=== PATIENT | male | born 1990 | race American Indian/Alaskan Native ===

== ENCOUNTER 2017-03-11 21:29 | Emergency (ER) | payer SELFPAY ==
[2017-03-11 22:15] LABS: Urine Drugs of Abuse Note Disclamer
[2017-03-11 22:19] LABS: Basophils % (Auto) 0.5 % (0.0-1.8); Eosinophils % (Auto) 0.1 % (0.0-4.3); Hematocrit 41.1 % (35.5-45.6); Hemoglobin 14.1 gm/dl (11.8-15.2); Mean Corpuscular HGB Conc 34 % (32-34); Mean Corpuscular Hemoglobin 30 pg (28-32); Mean Corpuscular Volume 89 fl (84-94); Platelet Count 263 K/mm3 (140-440); Red Blood Count 4.64 M/mm3 (3.65-5.03); Red Cell Distribution Width 14.1 % (13.2-15.2); White Blood Count 11.4 K/mm3 (4.5-11.0)
[2017-03-11 22:31] LABS: Anion Gap 22 mmol/L; Blood Urea Nitrogen 11 mg/dL (9-20); Calcium 9.9 mg/dL (8.4-10.2); Carbon Dioxide 24 mmol/L (22-30); Glucose 107 mg/dL (75-100); Potassium 4.4 mmol/L (3.6-5.0); Sodium 136 mmol/L (137-145)
[2017-03-11] MEDS ORDERED: ATIVAN PO ONE (22:31)
--- NOTE | 2017-03-11 22:32 | Emergency Department Report ---
ED Psych HPI - General Chief Complaint: Psych Stated Complaint: PARANOID Time Seen by Provider: 03/11/17 22:20 Source: patient Mode of arrival: Ambulatory Limitations: No Limitations - History of Present Illness Initial Comments: 26-year-old male with a past medical history of hypertension, ADHD, bipolar, and possible schizophrenia presents to the hospital. No weight loss. He feels like someone is out to get him and assisted him. He denies hallucinations, suicidal, homicidal ideation. He's been noncompliant with Zyprexa for several months. He was just released from nursing home 7 days ago and used meth/mesha 7 days ago after he was released. He states he did not receive any psychiatric medication while in nursing home No physical complaints reported - Related Data Home Medications Medication Instructions Recorded Confirmed Last Taken OLANzapine [Zyprexa] 10 mg PO DAILY 11/26/15 03/12/[address] [Pedrito Luong] 500 mg PO BID 03/18/16 03/12/17 2 Months Ago Allergies Allergy/AdvReac Type Severity Reaction Status Date / Time No Known Allergies Allergy Verified 03/18/16 15:44 ED Review of Systems ROS: Stated complaint: PARANOID Other details as noted in HPI Comment: All other systems reviewed and negative Other: Constitutional: No fevers chills Eyes: No eye pain visual changes ENT: No ear pain or throat pain Neck: Denies pain Respiratory: Denies cough wheezing shortness of breath Cardiovascular: Denies chest pain, palpitations, syncope GI: Denies abdominal pain, nausea, vomiting, diarrhea : Denies dysuria Musculoskeletal: Denies back pain, joint swelling Skin: Denies rash, lesions, erythema Neurologic: Denies headache, numbness, weakness Psychiatric: As per HPI ED Past Medical Hx - Past Medical History Previous Medical History?: Yes Hx Hypertension: Yes Hx Congestive Heart Failure: No Hx Diabetes: No Hx Psychiatric Treatment: Yes (ADHD, bipolar possibly schizophrenic) Hx Asthma: No Hx COPD: No - Surgical History Past Surgical History?: No - Social History Smoking Status: Current Every Day Smoker Substance Use Type: Alcohol, Methamphetamines - Medications Home Medications: Home Medications Medication Instructions Recorded Confirmed Last Taken Type OLANzapine [Zyprexa] 10 mg PO DAILY 11/26/15 03/12/17 2 Months Ago History D[address] [Pedrito Luong] 500 mg PO BID 03/18/16 03/12/17 2 Months Ago History ED Physical Exam - General Limitations: No Limitations - Other Other exam information: General: No limitations, patient is alert in no acute distress Head exam: Atraumatic, normocephalic Eyes exam: Normal appearance ENT: Moist mucous membrane, normal oropharynx Neck exam: Normal inspection, full range of motion, no meningismus nontender Respiratory exam: Clear to auscultation bilateral, no wheezes, rales, crackles Cardiovascular: Mild tachycardia regular rhythm Abdomen: Soft, nondistended, and nontender, with normal bowel sounds, no rebound, or guarding Extremity: Full range of motion normal inspection no deformity Back: Normal Inspection, full range of motion, no tenderness Neurologic: Alert, oriented x3, cranial nerves intact, no motor or sensory deficit Psychiatric: Paranoid Skin: Warm, dry, intact ED Course Vital Signs 03/11/17 03/12/17 21:46 02:43 Temperature 98.7 F 97.8 F Pulse Rate 120 H 97 H Respiratory 24 18 Rate Blood Pressure 162/96 Blood Pressure 142/86 [Left] O2 Sat by Pulse 95 100 Oximetry - Reevaluation(s) Reevaluation #1: 03/11/17 22:31 Ativan 1 mg by mouth for tachycardia and paranoia 03/12/17 Patient began to become combative with increased agitation prior to receiving Ativan. Patient required Geodon IM, Ativan IM, and Benadryl. Reevaluation #2: 03/12/17 06:30 Repeat vital signs show improvement in tachycardia with sedation and IV fluids ED Medical Decision Making - Lab Data Result diagrams: 03/11/17 21:56 03/11/17 21:56 Lab Results 03/11/17 03/11/17 03/11/17 Range/Units 21:56 21:56 21:56 WBC 11.4 H (4.5-11.0) K/mm3 RBC 4.64 (3.65-5.03) M/mm3 Hgb 14.1 (11.8-15.2) gm/dl Hct 41.1 (35.5-45.6) % MCV 89 (84-94) fl MCH 30 (28-32) pg MCHC 34 (32-34) % RDW 14.1 (13.2-15.2) % Plt Count 263 (140-440) K/mm3 Lymph % (Auto) 7.5 L (13.4-35.0) % [place] % (Auto) 7.2 (0.0-7.3) % Eos % (Auto) 0.1 (0.0-4.3) % Baso % (Auto) 0.5 (0.0-1.8) % Lymph # 0.9 L (1.2-5.4) K/mm3 [place] # 0.8 (0.0-0.8) K/mm3 Eos # 0.0 (0.0-0.4) K/mm3 Baso # 0.1 (0.0-0.1) K/mm3 Seg Neutrophils % 84.7 H (40.0-70.0) % Seg Neutrophils # 9.6 H (1.8-7.7) K/mm3 Sodium 136 L (137-145) mmol/L Potassium 4.4 (3.6-5.0) mmol/L Chloride 94.0 L (98-107) mmol/L Carbon Dioxide 24 (22-30) mmol/L Anion Gap 22 mmol/L BUN 11 (9-20) mg/dL Creatinine 1.1 (0.8-1.5) mg/dL Estimated GFR > 60 ml/min BUN/Creatinine Ratio 10.00 % Glucose 107 H (75-100) mg/dL Calcium 9.9 (8.4-10.2) mg/dL Total Creatine Kinase (55-170) units/L Urine Color (Yellow) Urine Turbidity (Clear) Urine pH (5.0-7.0) Ur Specific [place] (1.003-1.030) Urine Protein (Negative) mg/dL Urine Glucose (UA) (Negative) mg/dL Urine Ketones (Negative) mg/dL Urine Blood (Negative) Urine Nitrite (Negative) Urine Bilirubin (Negative) Urine Urobilinogen (<2.0) mg/dL Ur Leukocyte Esterase (Negative) Urine WBC (Auto) (0.0-6.0) /HPF Urine RBC (Auto) (0.0-6.0) /HPF Urine Mucus /HPF Urine Opiates Screen Urine Methadone Screen Ur Barbiturates Screen Ur Phencyclidine Scrn Ur Amphetamines Screen U Benzodiazepines Scrn Urine Cocaine Screen U Marijuana (THC) Screen Drugs of Abuse Note Plasma/Serum Alcohol < 0.01 (0-0.07) gm% 03/11/17 03/11/17 03/11/17 Range/Units 21:56 22:11 22:11 WBC (4.5-11.0) K/mm3 RBC (3.65-5.03) M/mm3 Hgb (11.8-15.2) gm/dl Hct (35.5-45.6) % MCV (84-94) fl MCH (28-32) pg MCHC (32-34) % RDW (13.2-15.2) % Plt Count (140-440) K/mm3 Lymph % (Auto) (13.4-35.0) % [place] % (Auto) (0.0-7.3) % Eos % (Auto) (0.0-4.3) % Baso % (Auto) (0.0-1.8) % Lymph # (1.2-5.4) K/mm3 [place] # (0.0-0.8) K/mm3 Eos # (0.0-0.4) K/mm3 Baso # (0.0-0.1) K/mm3 Seg Neutrophils % (40.0-70.0) % Seg Neutrophils # (1.8-7.7) K/mm3 Sodium (137-145) mmol/L Potassium (3.6-5.0) mmol/L Chloride (98-107) mmol/L Carbon Dioxide (22-30) mmol/L Anion Gap mmol/L BUN (9-20) mg/dL Creatinine (0.8-1.5) mg/dL Estimated GFR ml/min BUN/Creatinine Ratio % Glucose (75-100) mg/dL Calcium (8.4-10.2) mg/dL Total Creatine Kinase 1704 H (55-170) units/L Urine Color Yellow (Yellow) Urine Turbidity Clear (Clear) Urine pH 6.0 (5.0-7.0) Ur Specific [place] 1.018 (1.003-1.030) Urine Protein <15 mg/dl (Negative) mg/dL Urine Glucose (UA) Neg (Negative) mg/dL Urine Ketones Tr (Negative) mg/dL Urine Blood Neg (Negative) Urine Nitrite Neg (Negative) Urine Bilirubin Neg (Negative) Urine Urobilinogen < 2.0 (<2.0) mg/dL Ur Leukocyte Esterase Neg (Negative) Urine WBC (Auto) 1.0 (0.0-6.0) /HPF Urine RBC (Auto) 2.0 (0.0-6.0) /HPF Urine Mucus Few /HPF Urine Opiates Screen Presumptive negative Urine Methadone Screen Presumptive negative Ur Barbiturates Screen Presumptive negative Ur Phencyclidine Scrn Presumptive negative Ur Amphetamines Screen Presumptive positive U Benzodiazepines Scrn Presumptive negative Urine Cocaine Screen Presumptive positive U Marijuana (THC) Screen Presumptive positive Drugs of Abuse Note Disclamer Plasma/Serum Alcohol (0-0.07) gm% 03/12/17 Range/Units 02:33 WBC (4.5-11.0) K/mm3 RBC (3.65-5.03) M/mm3 Hgb (11.8-15.2) gm/dl Hct (35.5-45.6) % MCV (84-94) fl MCH (28-32) pg MCHC (32-34) % RDW (13.2-15.2) % Plt Count (140-440) K/mm3 Lymph % (Auto) (13.4-35.0) % [place] % (Auto) (0.0-7.3) % Eos % (Auto) (0.0-4.3) % Baso % (Auto) (0.0-1.8) % Lymph # (1.2-5.4) K/mm3 [place] # (0.0-0.8) K/mm3 Eos # (0.0-0.4) K/mm3 Baso # (0.0-0.1) K/mm3 Seg Neutrophils % (40.0-70.0) % Seg Neutrophils # (1.8-7.7) K/mm3 Sodium (137-145) mmol/L Potassium (3.6-5.0) mmol/L Chloride (98-107) mmol/L Carbon Dioxide (22-30) mmol/L Anion Gap mmol/L BUN (9-20) mg/dL Creatinine (0.8-1.5) mg/dL Estimated GFR ml/min BUN/Creatinine Ratio % Glucose (75-100) mg/dL Calcium (8.4-10.2) mg/dL Total Creatine Kinase 1819 H (55-170) units/L Urine Color (Yellow) Urine Turbidity (Clear) Urine pH (5.0-7.0) Ur Specific [place] (1.003-1.030) Urine Protein (Negative) mg/dL Urine Glucose (UA) (Negative) mg/dL Urine Ketones (Negative) mg/dL Urine Blood (Negative) Urine Nitrite (Negative) Urine Bilirubin (Negative) Urine Urobilinogen (<2.0) mg/dL Ur Leukocyte Esterase (Negative) Urine WBC (Auto) (0.0-6.0) /HPF Urine RBC (Auto) (0.0-6.0) /HPF Urine Mucus /HPF Urine Opiates Screen Urine Methadone Screen Ur Barbiturates Screen Ur Phencyclidine Scrn Ur Amphetamines Screen U Benzodiazepines Scrn Urine Cocaine Screen U Marijuana (THC) Screen Drugs of Abuse Note Plasma/Serum Alcohol (0-0.07) gm% - Medical Decision Making 1013 signed, mental health evaluation pending After 2 L of normal saline patient's CK stranding upper. As of 6:29 AM. Fourth liter normal saline progress. Patient signout to Dr. Price to follow up CK is trending up. Patient may need admission to the hospital. I suspect that acute. Her behavior may be secondary to acute drug ingestion versus underlying psychiatric disorder. He has positive cocaine and amphetamines as well as marijuana. - Differential Diagnosis methamphetamine abuse, paranoia, suicide ideation, psychosis Critical Care Time: No Critical care attestation.: If time is entered above; I have spent that time in minutes in the direct care of this critically ill patient, excluding procedure time. ED Disposition Clinical Impression: Schizophrenia, Elevated CK, Polysubstance abuse, Noncompliance with medication regimen Disposition: DC/TX-65 PSY HOSP/PSY UNIT Is pt being admited?: No Condition: Stable Time of Disposition: 06:30 (awaiting acceptance)
[2017-03-11 22:41] LABS: Bilirubin,Urine NEG (Negative); Blood,Urine NEG (Negative); Ketones,Urine TR mg/dL (Negative); Leukocyte Esterase,Urine NEG (Negative); Mucus,Urine FEW /HPF; Nitrite,Urine NEG (Negative); Protein,Urine <15 mg/dL mg/dL (Negative); Urobilinogen,Urine < 2.0 mg/dL (<2.0)
[2017-03-11] MEDS ORDERED: GEODON IM ONE (22:48)
[2017-03-11] MEDS ORDERED: NACL 0.9% 1000 ML 1,000 ML IV ONE ×2 (22:48)
[2017-03-11] MEDS ORDERED: BENADRYL IM ONE (22:48)
[2017-03-11] MEDS ORDERED: ATIVAN IM ONE (22:48)
[2017-03-12] MEDS ORDERED: NACL 0.9% 1000 ML 1,000 ML IV ONE ×4 (01:45→13:27)
[2017-03-12] MEDS ORDERED: ATIVAN IM ONE (10:42)
[2017-03-12] MEDS ORDERED: HALDOL IM ONE (10:42)
--- NOTE | 2017-03-12 13:36 | Consultation ---
History of Present Illness - Reason for Consult Consult date: 03/12/17 Reason for consult: psychiatric evaluation - Chief Complaint Chief complaint: "I want out of here." - History of Present Psychiatric Illness 26 year old male seen for psychiatric evaluation presents complaining of paranoid ideation and methamphetamine use. Pt has history of Schizophrenia with multiple prior inpatient hospitalizations. He admits noncompliance with prescribed medications including Zyprexa, depakote (for seizures), and Seroquel past few months. Pt is paranoid and believes that someone is chasing him with intent to take his life. He reports recent use of Amphetamines and cocaine, but admits daily use of any combination of multiple drugs including cocaine, mesha, amphetamines, marijuana, and Xanax. Pt presents alert and oriented x3, cooperative, anxious with congruent affect, impaired insight and judgment. He denies suicidal or homicidal ideation, auditory or visual hallucinations but continues to endorse paranoid delusions. He repeatedly states he needs to leave and did not ask to be there. He was uncooperative with further interviewing. Medications and Allergies Allergies Allergy/AdvReac Type Severity Reaction Status Date / Time No Known Allergies Allergy Verified 03/18/16 15:44 Home Medications Medication Instructions Recorded Confirmed Last Taken Type OLANzapine [Zyprexa] 10 mg PO DAILY 11/26/15 03/12/17 2 Months Ago History D[address] [Depakote Dr] 500 mg PO BID 03/18/16 03/12/17 2 Months Ago History Divalproex ER [Depakote ER] 500 mg PO BID #60 tablet 03/15/17 Unknown Rx Active Meds: Active Medications Sodium Chloride (Nacl 0.9% 1000 Ml) 1,000 mls @ 999 mls/hr IV BOLUS ONE Stop: 03/12/17 14:27 Past psychiatric history - Past Medical History Past Medical History: seizures - past Psychiatric treatment and history Psych: Addictions, Schizophrenia Mental Status Exam - Vital signs Last Vital Signs Temp 97.8 F 03/12/17 02:43 Pulse 97 H 03/12/17 02:43 Resp 18 03/12/17 02:43 BP 142/86 03/12/17 02:43 Pulse Ox 100 03/12/17 02:43 - Exam Orientation: time, place, person Affect: agitated Mood: other (agitated) Thought content: paranoia Thought Process: Tangential Perceptions: other (denies) Speech: other (loud) Concentration: distractible Motor activity: agitated Level of consciousness: alert Memory: Intact Sleep Symptoms: Insomnia Appetite: decreased Interaction: irritable, guarded Results Result Diagrams: 03/11/17 21:56 03/11/17 21:56 Abnormal lab results 03/11/17 03/11/17 03/11/17 Range/Units 21:56 21:56 21:56 WBC 11.4 H (4.5-11.0) K/mm3 Lymph % (Auto) 7.5 L (13.4-35.0) % Lymph # 0.9 L (1.2-5.4) K/mm3 Seg Neutrophils % 84.7 H (40.0-70.0) % Seg Neutrophils # 9.6 H (1.8-7.7) K/mm3 Sodium 136 L (137-145) mmol/L Chloride 94.0 L (98-107) mmol/L Glucose 107 H (75-100) mg/dL Total Creatine Kinase 1704 H (55-170) units/L 03/12/17 03/12/17 Range/Units 02:33 09:41 WBC (4.5-11.0) K/mm3 Lymph % (Auto) (13.4-35.0) % Lymph # (1.2-5.4) K/mm3 Seg Neutrophils % (40.0-70.0) % Seg Neutrophils # (1.8-7.7) K/mm3 Sodium (137-145) mmol/L Chloride (98-107) mmol/L Glucose (75-100) mg/dL Total Creatine Kinase 1819 H 3200 H (55-170) units/L All other labs normal. Assessment and Plan Assessment and plan: Impression: historical diagnosis of schizophrenia polysubstance use (stimulant use d/o, sedative hypnotic use, CK is 3600 Recommendation: Hold antipsychotic at this time to avoid further elevation of CK/rhabdo start depakote for agitation/mood
[2017-03-12] MEDS ORDERED: HALDOL ONE (15:20)
[2017-03-12] MEDS ORDERED: ATIVAN ONE (15:20)
--- NOTE | 2017-03-14 14:44 | Progress Note ---
Subjective - Reason for Consult Consult date: 03/14/17 Reason for consult: Psychiatry Follow-up - Chief Complaint Chief complaint: "I want to go home" 26 year old male seen for psychiatric evaluation presents complaining of paranoid ideation and methamphetamine use. Today patient is calm and cooperative during assessment. He stated that he was in [facility] and once released, he wanted to "Turn up" so he decided to get "high" on recreational drugs. He stated that he felt "paranoid" when he started using the drugs. He stated that he cannot remember what happened when he came to [facility]. He stated that he would like to stop using recreational drugs so he can get his life together. Patient was in the secured padded room during the assessment. He denies SI/HI's, AVH's, and depression. Mental Status Exam - Vital signs Last Vital Signs Temp 98.1 F 03/14/17 14:17 Pulse 74 03/14/17 14:17 Resp 20 03/14/17 14:18 BP 102/65 03/14/17 14:17 Pulse Ox 100 03/14/17 14:18 - Exam Narrative exam: MSE: Appearance: calm, cooperative Behavior: regular eye contact Speech: regular rate and tone Mood: "okay" Affect: congruent to mood Thought Process: circumstantial Thought Content: denies SI/HI's with AVH's Motor Activity: ambulatory Cognition: A/Ox 3 Insight: fair Judgment: fair Assessment and Plan Impression: Historical DX per patient: Bipolar DO. Substance Use DO ( amphetamines, cocaine, marijuana) Substance Induced Psychosis. CK 1003, trending down. Recommendation/Plan: Evaluate 1013 in 24 hours. Will start Depakote 500 mg BID for mood once LFT's result.
[2017-03-14 16:54] LABS: Alanine Aminotransferase 41 units/L (7-56); Alkaline Phosphatase 54 units/L (35-129)
--- NOTE | 2017-03-15 13:18 | Progress Note ---
Subjective - Reason for Consult Consult date: 03/15/17 Reason for consult: Psychiatry Follow-up - Chief Complaint Chief complaint: "Hello" 26 year old male seen for psychiatric evaluation presents complaining of paranoid ideation and methamphetamine use. Today patient is calm and cooperative during assessment. He stated that he would like to be discharged. He stated that he will follow-up with [facility] for outpatient psy/rehab services. He denies SI/HI's, AVH's, and depression. He denies any side effects of his medication. Mental Status Exam - Vital signs Last Vital Signs Temp 98 F 03/14/17 20:47 Pulse 71 03/14/17 20:47 Resp 18 03/14/17 20:47 BP 105/66 03/14/17 20:47 Pulse Ox 98 03/14/17 20:47 - Exam Narrative exam: MSE: Appearance: calm, cooperative Behavior: regular eye contact Speech: regular rate and tone Mood: "I am good" Affect: congruent to mood Thought Process: linear Thought Content: denies SI/HI's with AVH's Motor Activity: ambulatory Cognition: A/Ox 3 Insight: fair Judgment: fair Assessment and Plan Impression: Historical DX per patient: Bipolar DO. Substance Use DO ( amphetamines, cocaine, marijuana) Substance Induced Psychosis. CK 1003, trending down. Recommendation/Plan: Rescind 1013. Continue Depakote 500 mg BID for mood. Patient stated that he will follow-up with [facility] ([facility] for outpatient/rehab services.
[2017-03-15 17:07] VITALS: BP 109/66
--- NOTE | 2017-03-15 19:01 | Emergency Department Report ---
HPI - General Chief Complaint: Psych Time Seen by Provider: 03/11/17 22:20 ED Past Medical Hx - Past Medical History Previous Medical History?: Yes Hx Hypertension: Yes Hx Congestive Heart Failure: No Hx Diabetes: No Hx Psychiatric Treatment: Yes (ADHD, bipolar possibly schizophrenic) Hx Asthma: No Hx COPD: No - Surgical History Past Surgical History?: No - Social History Smoking Status: Current Every Day Smoker Substance Use Type: Alcohol, Methamphetamines - Medications Home Medications: Home Medications Medication Instructions Recorded Confirmed Last Taken Type OLANzapine [Zyprexa] 10 mg PO DAILY 11/26/15 03/12/17 2 Months Ago History D[address] [Depakote Dr] 500 mg PO BID 03/18/16 03/12/17 2 Months Ago History Divalproex ER [Depakote ER] 500 mg PO BID #60 tablet 03/15/17 Unknown Rx ED Review of Systems ROS: Stated complaint: PARANOID Other details as noted in HPI Physical Exam - Physical Exam Vital Signs: Vital Signs 03/11/17 03/12/17 03/12/17 21:46 02:43 14:16 Temperature 98.7 F 97.8 F 98.2 F Pulse Rate 120 H 97 H 90 Respiratory 24 18 18 Rate Blood Pressure 162/96 Blood Pressure 142/86 138/78 [Left] O2 Sat by Pulse 95 100 97 Oximetry 03/12/17 03/13/17 03/13/17 14:17 08:05 08:43 Temperature 97.9 F Pulse Rate 84 Respiratory 18 16 16 Rate Blood Pressure Blood Pressure 127/71 [Left] O2 Sat by Pulse 99 99 Oximetry 03/13/17 03/14/17 03/14/17 22:00 14:17 14:18 Temperature 98.1 F 98.1 F Pulse Rate 76 74 Respiratory 18 20 20 Rate Blood Pressure Blood Pressure 108/54 102/65 [Left] O2 Sat by Pulse 100 100 100 Oximetry 03/14/17 03/15/17 03/15/17 20:47 08:20 17:07 Temperature 98 F 97.9 F Pulse Rate 71 78 Respiratory 18 20 20 Rate Blood Pressure Blood Pressure 105/66 109/66 [Left] O2 Sat by Pulse 98 96 100 Oximetry ED Course Vital Signs 03/11/17 03/12/17 03/12/17 21:46 02:43 14:16 Temperature 98.7 F 97.8 F 98.2 F Pulse Rate 120 H 97 H 90 Respiratory 24 18 18 Rate Blood Pressure 162/96 Blood Pressure 142/86 138/78 [Left] O2 Sat by Pulse 95 100 97 Oximetry 03/12/17 03/13/17 03/13/17 14:17 08:05 08:43 Temperature 97.9 F Pulse Rate 84 Respiratory 18 16 16 Rate Blood Pressure Blood Pressure 127/71 [Left] O2 Sat by Pulse 99 99 Oximetry 03/13/17 03/14/17 03/14/17 22:00 14:17 14:18 Temperature 98.1 F 98.1 F Pulse Rate 76 74 Respiratory 18 20 20 Rate Blood Pressure Blood Pressure 108/54 102/65 [Left] O2 Sat by Pulse 100 100 100 Oximetry 03/14/17 03/15/17 03/15/17 20:47 08:20 17:07 Temperature 98 F 97.9 F Pulse Rate 71 78 Respiratory 18 20 20 Rate Blood Pressure Blood Pressure 105/66 109/66 [Left] O2 Sat by Pulse 98 96 100 Oximetry ED Medical Decision Making - Lab Data Result diagrams: 03/11/17 21:56 03/11/17 21:56 - Medical Decision Making Patient with psychosis likely related to substance abuse here for several days. Was sent to 1013 in conjunction with [facility] recommendation. Continue the patient 's Depakote 500 twice a day and he will follow-up with [place] [facility]. Critical care attestation.: If time is entered above; I have spent that time in minutes in the direct care of this critically ill patient, excluding procedure time. ED Disposition Clinical Impression: Substance abuse, Rhabdomyolysis, Polysubstance abuse, Schizophrenia Disposition: DC/TX-65 PSY HOSP/PSY UNIT Is pt being admited?: No Condition: Stable Instructions: Methamphetamine Abuse (ED), Schizophrenia (ED) Prescriptions: Divalproex ER [Depakote ER] 500 mg PO BID #60 tablet Referrals: PRIMARY CARE, [Primary Care Provider] - 3-5 Days
== END 2017-03-15 19:16 | disposition home or self-care (01) ==
LOC: ED 21:29 → EEVIPCON 21:29 → ED 03-15 19:16
DX: F20.9 Schizophrenia, unspecified (principal); M62.82 Rhabdomyolysis; F19.10 Other psychoactive substance abuse, uncomplicated; I10 Essential (primary) hypertension; F17.200 Nicotine dependence, unspecified, uncomplicated
CPT/HCPCS: 36415; 80048; 80307; 81001; 82550; 84075; 84450; 84460; 85025; 96360; 96361; 96372; 99285; G0480; J1200; J1630; J2060; J3486; J7030; 80320

== ENCOUNTER 2021-06-14 05:11 | Emergency (ER) | payer SELFPAY ==
[2021-06-14 05:20] VITALS: BP 115/84
[2021-06-14] MEDS ORDERED: ACETAMINOPHEN 325 MG TAB PO ONE (05:46)
--- NOTE | 2021-06-14 06:18 | Emergency Department Report ---
ED General Adult HPI - General Chief complaint: Extremity Injury, Lower Stated complaint: FOOT PAIN/COUGH Time Seen by Provider: 06/14/21 05:45 Source: patient, EMS, old records reviewed Mode of arrival: Ambulatory Limitations: No Limitations - History of Present Illness Initial comments: The patient was evaluated in the emergency department for symptoms described in the history of present illness. He/she was evaluated in the context of the global COVID-19 pandemic, which necessitated consideration that the patient might be at risk for infection with the virus that causes COVID-19. Institutional protocols and algorithms that pertain to the evaluation of patients at risk for COVID-19 are in a state of rapid change based on information released by regulatory bodies including the CDC and federal and state organizations. These policies and algorithms were followed during the patient's care in the emergency department. Please note that these policies, procedures and recommendations changed on a rapid basis. 30-year-old -[place] male presents to the emergency room concern for Covid and complains of both feet hurt. Patient was seen here yesterday for sore throat and was placed on Augmentin. Patient states he is recently out of group home. Patient has contagious sleep in the room for a while. Patient denies any fever but admits to a cough. Onset/Timin -: days(s) Location: lower extremity (Bilateral feet) Severity scale (0 -10): 8 Quality: burning, aching Consistency: constant Improves with: rest Worsens with: movement (Walking) Associated Symptoms: cough. denies: fever/chills, nausea/vomiting, shortness of breath - Related Data Home Medications Medication Instructions Recorded Confirmed Last Taken OLANzapine [Zyprexa] 10 mg PO DAILY 11/26/15 03/12/17 2 Months Ago ~04/08/[address] [Pedrito Luong] 500 mg PO BID 03/18/16 03/12/17 2 Months Ago ~04/08/16 Previous Rx's Medication Instructions Recorded Last Taken Type Azithromycin [Zithromax TAB] 250 mg PO QDAY #4 tablet 09/26/18 Unknown Rx Amoxicillin [Trimox CAP] 500 mg PO Q8H #30 capsule 06/13/21 Unknown Rx Mometasone Furoate [Nasonex] 17 gm NS DAILY #1 spray.pump 06/13/21 Unknown Rx Allergies Allergy/AdvReac Type Severity Reaction Status Date / Time No Known Allergies Allergy Verified 06/14/21 05:24 ED Review of Systems ROS: Stated complaint: FOOT PAIN/COUGH Other details as noted in HPI Comment: All other systems reviewed and negative ED Past Medical Hx - Past Medical History Previous Medical History?: Yes Hx Hypertension: Yes Hx Congestive Heart Failure: No Hx Diabetes: No Hx Seizures: Yes Hx Psychiatric Treatment: Yes (ADHD, bipolar possibly schizophrenic) Hx Asthma: No Hx COPD: No Hx HIV: No - Surgical History Past Surgical History?: No - Social History Smoking Status: Current Every Day Smoker Substance Use Type: None - Medications Home Medications: Home Medications Medication Instructions Recorded Confirmed Last Taken Type OLANzapine [Zyprexa] 10 mg PO DAILY 11/26/15 03/12/17 2 Months Ago History ~04/08/[address] [Depakote Dr] 500 mg PO BID 03/18/16 03/12/17 2 Months Ago History ~04/08/16 Azithromycin [Zithromax TAB] 250 mg PO QDAY #4 tablet 09/26/18 Unknown Rx Amoxicillin [Trimox CAP] 500 mg PO Q8H #30 capsule 06/13/21 Unknown Rx Mometasone Furoate [Nasonex] 17 gm NS DAILY #1 spray.pump 06/13/21 Unknown Rx ED Physical Exam - General Limitations: No Limitations General appearance: alert, in no apparent distress - Head Head exam: Present: atraumatic, normocephalic - Eye Eye exam: Present: normal appearance - ENT ENT exam: Present: mucous membranes moist - Neck Neck exam: Present: normal inspection, full ROM - Respiratory Respiratory exam: Absent: respiratory distress, accessory muscle use - Cardiovascular Cardiovascular Exam: Present: tachycardia - Extremities Exam Extremities exam: Present: full ROM (Both feet), tenderness (Both feet), joint swelling (Both ankles) - Back Exam Back exam: Present: normal inspection - Neurological Exam Neurological exam: Present: alert, oriented X3 - Psychiatric Psychiatric exam: Present: flat affect - Skin Skin exam: Present: warm, dry, erythema (Bilateral feet) - Expanded Skin Exam Expanded Description of rash: Present: tenderness, erythematous, swelling ED Course Vital Signs 06/14/21 05:15 Temperature 99.6 F Pulse Rate 120 H Respiratory 18 Rate Blood Pressure 115/84 [Left] O2 Sat by Pulse 96 Oximetry ED Medical Decision Making - Medical Decision Making 30-year-old -[place] male presents to the emergency room concern for Covid and complains of both feet hurt. Patient was seen here yesterday for sore throat and was placed on Augmentin. Patient states he is recently out of group home. Patient has contagious sleep in the room for a while. Patient denies any fever but admits to a cough. Chest x-ray ordered. Patient appears to have cellulitis to both feet he was written a prescription for Augmentin which will cover cellulitis of his feet. Critical care attestation.: If time is entered above; I have spent that time in minutes in the direct care of this critically ill patient, excluding procedure time. ED Disposition Clinical Impression: Cellulitis of both feet Disposition: 01 HOME / SELF CARE / HOMELESS Is pt being admited?: No Does the pt Need Aspirin: No Condition: Stable Instructions: Cellulitis, Adult, [id number] Additional Instructions: Please fill your prescription for Augmentin that was given to you yesterday. Tylenol or ibuprofen as needed for pain. Be sure to increase your fluid intake. Elevate your feet and rest. Referrals: PRIMARY CAREMD [Primary Care Provider] - 3-5 Days DAVON SCHNEIDER MD [Staff Physician] - 3-5 Days Time of Disposition: 06:27
--- NOTE | 2021-06-14 06:42 | XRay Report ---
XR chest routine 2V INDICATION / CLINICAL INFORMATION: sob, cough. COMPARISON: 09/24/2018. FINDINGS: SUPPORT DEVICES: None. HEART /PULMONARY VASCULATURE: No significant abnormality. LUNGS / PLEURA: No significant pulmonary or pleural abnormality. No pneumothorax. ADDITIONAL FINDINGS: No significant additional findings. IMPRESSION: 1. No acute findings. Signer Name: Sudhakar Cruz MD Signed: 06/14/2021 6:38 AM Workstation Name: [id number]
== END 2021-06-15 04:33 | disposition home or self-care (01) ==
LOC: ED 05:11
DX: L03.116 Cellulitis of left lower limb (principal); L03.115 Cellulitis of right lower limb; I10 Essential (primary) hypertension; F20.9 Schizophrenia, unspecified; F17.200 Nicotine dependence, unspecified, uncomplicated; F31.9 Bipolar disorder, unspecified; Z79.899 Other long term (current) drug therapy
CPT/HCPCS: 71046; 99283

== ENCOUNTER 2021-07-07 07:05 | Emergency (ER) | payer SELFPAY | END 2021-07-07 20:38 | disposition left against medical advice (07) | LOC: ED 07:05 | DX: R05.9 Cough, unspecified (principal); J02.9 Acute pharyngitis, unspecified; M25.579 Pain in unspecified ankle and joints of unspecified foot; Z20.822 Contact with and (suspected) exposure to COVID-19; Z53.21 Procedure and treatment not carried out due to patient leaving prior to being seen by health care provider ==

== ENCOUNTER 2021-07-07 23:56 | Emergency (ER) | payer SELFPAY | END 2021-07-08 11:50 | LOC: ED 23:56 | DX: R44.3 Hallucinations, unspecified (principal); Z53.21 Procedure and treatment not carried out due to patient leaving prior to being seen by health care provider ==

== ENCOUNTER 2021-07-10 05:26 | Emergency (ER) | payer SELFPAY ==
[2021-07-10 05:41] VITALS: BP 113/77
== END 2021-07-10 05:40 | disposition left against medical advice (07) ==
LOC: ED 05:26
DX: M79.671 Pain in right foot (principal); M79.672 Pain in left foot; Z53.21 Procedure and treatment not carried out due to patient leaving prior to being seen by health care provider

== ENCOUNTER 2021-07-10 07:37 | Emergency (ER) | payer SELFPAY ==
--- NOTE | 2021-07-10 07:52 | Emergency Department Report ---
ED Lower Extremity HPI - General Chief Complaint: Extremity Injury, Lower Stated Complaint: FEET HURTING Time Seen by Provider: 07/10/21 07:44 Source: patient Mode of arrival: Ambulatory Limitations: No Limitations - History of Present Illness Initial Comments: Patient presents with a 3-week history of bilateral foot pain. He states that they are blistered. He admits that he has been walking around in wet shoes and socks. He came in for evaluation and treatment. Pain is constant and aching. It is worse with movement and worse with weightbearing. He has no fevers or chills but there is no cough congestion. No direct trauma reported. He is homeless. He states he has not taken anything for the pain as of yet. - Related Data Home Medications Medication Instructions Recorded Confirmed Last Taken OLANzapine [Zyprexa] 10 mg PO DAILY 11/26/15 03/12/17 2 Months Ago ~04/08/[address] [Depakote Dr] 500 mg PO BID 03/18/16 03/12/17 2 Months Ago ~04/08/16 Previous Rx's Medication Instructions Recorded Last Taken Type Mometasone Furoate [Nasonex] 17 gm NS DAILY #1 spray.pump 06/13/21 Unknown Rx Nystatin [Nystop Powder] 1 applicatio TP TID #2 bottle 07/10/21 Unknown Rx Allergies Allergy/AdvReac Type Severity Reaction Status Date / Time No Known Allergies Allergy Verified 07/07/21 07:09 ED Review of Systems ROS: Stated complaint: FEET HURTING Other details as noted in HPI Comment: All other systems reviewed and negative Constitutional: denies: fever Eyes: denies: vision change ENT: denies: throat pain Respiratory: denies: cough Cardiovascular: denies: chest pain Endocrine: denies: unexplained weight loss Gastrointestinal: denies: abdominal pain Genitourinary: denies: urgency Musculoskeletal: denies: back pain Skin: as per HPI Neurological: denies: headache Hematological/Lymphatic: denies: easy bruising ED Past Medical Hx - Past Medical History Hx Hypertension: Yes Hx Congestive Heart Failure: No Hx Diabetes: No Hx Seizures: Yes Hx Psychiatric Treatment: Yes (ADHD, bipolar possibly schizophrenic) Hx Asthma: No Hx COPD: No Hx HIV: No - Family History Family history: hypertension - Social History Substance Use Type: Alcohol, Methamphetamines - Medications Home Medications: Home Medications Medication Instructions Recorded Confirmed Last Taken Type OLANzapine [Zyprexa] 10 mg PO DAILY 11/26/15 03/12/17 2 Months Ago History ~04/08/[address] [Depakote Dr] 500 mg PO BID 03/18/16 03/12/17 2 Months Ago History ~04/08/16 Mometasone Furoate [Nasonex] 17 gm NS DAILY #1 spray.pump 06/13/21 Unknown Rx Nystatin [Nystop Powder] 1 applicatio TP TID #2 bottle 07/10/21 Unknown Rx ED Physical Exam - General Limitations: No Limitations, Other (Pulse ox noted a normal) General appearance: alert, in no apparent distress, other (Disheveled) - Head Head exam: Present: atraumatic, normocephalic - Eye Eye exam: Present: normal appearance, EOMI - ENT ENT exam: Present: normal external ear exam - Neck Neck exam: Present: normal inspection. Absent: meningismus - Respiratory Respiratory exam: Absent: respiratory distress - Cardiovascular Cardiovascular Exam: Absent: JVD - GI/Abdominal GI/Abdominal exam: Present: other (Flat) - Extremities Exam Extremities exam: Present: normal capillary refill, other (Patient has blister formation to the plantar aspect of both feet at the toe area. There is no warmth or erythema. There is skin desquamation and sloughing. There is localized tenderness. Pulses are equal and symmetric. Cap refill is brisk.) - Back Exam Back exam: Present: full ROM - Neurological Exam Neurological exam: Present: alert, oriented X3, normal gait. Absent: motor sensory deficit - Psychiatric Psychiatric exam: Present: normal affect, normal mood - Skin Skin exam: Present: warm, dry ED Course - Reevaluation(s) Reevaluation #1: 07/10/21 07:51 Patient was discharged. ED Lower Extremity MDM - Medical Decision Making Patient presents with bilateral trench foot disease. He admits that he has been walking around in wet socks and shoes. He was treated symptomatically and referred for outpatient evaluation and treatment. We discussed the benefit of keeping his feet clean and dry as much as possible. He was referred to a PCP fo r recheck. He is not diabetic by history and does not have polydipsia or polyuria suggestive of new onset diabetes. Patient does not have any evidence of cellulitis. Critical Care Time: No Critical care attestation.: If time is entered above; I have spent that time in minutes in the direct care of this critically ill patient, excluding procedure time. ED Disposition Clinical Impression: Trench feet Qualifiers: Encounter type: initial encounter Laterality: unspecified laterality Qualified Code(s): T69.029A - Immersion foot, unspecified foot, initial encounter Disposition: HOME / SELF CARE / HOMELESS Is pt being admited?: No Condition: Stable Additional Instructions: Keep your feet clean and dry. Return for problems. Follow-up with a regular doctor. If you do not have a regular doctor, follow-up with the referral physician. Prescriptions: Nystatin [Nystop Powder] 1 applicatio TP TID #2 bottle Referrals: PRIMARY CAREMD [Primary Care Provider] - 3-5 Days PITO LYLES MD [Staff Physician] - 3-5 Days
[2021-07-10 08:07] VITALS: BP 125/85
== END 2021-07-10 08:12 | disposition home or self-care (01) ==
LOC: ED 07:37
DX: T69.022A Immersion foot, left foot, initial encounter (principal); T69.021A Immersion foot, right foot, initial encounter; I10 Essential (primary) hypertension; F31.9 Bipolar disorder, unspecified; Z79.899 Other long term (current) drug therapy
CPT/HCPCS: 99282

== ENCOUNTER 2021-07-16 08:36 | Emergency (ER) | payer SELFPAY ==
--- NOTE | 2021-07-16 09:02 | Emergency Department Report ---
ED General Adult HPI - General Chief complaint: Extremity Injury, Lower Stated complaint: FOOT INFECTION Time Seen by Provider: 07/16/21 08:49 Source: patient Mode of arrival: Ambulatory Limitations: No Limitations - History of Present Illness Initial comments: Patient presents secondary to foot issues. Patient has stated that his feet are green. Is been present for months. He admits that he is homeless and has no way to care for himself. I did confront him as I spoke with him a couple of days ago about this. I treated him for trench foot. He admits that he did not fill the prescriptions. He is here because he wants a place to sleep. He states that people are "bugging him." He states that he just wants a warm place to sleep. Patient has no trauma. Has no fevers or chills. He admits that he has been walking around. - Related Data Home Medications Medication Instructions Recorded Confirmed Last Taken OLANzapine [Zyprexa] 10 mg PO DAILY 11/26/15 03/12/17 2 Months Ago ~04/08/16 Divalproex [Pedrito Luong] 500 mg PO BID 03/18/16 03/12/17 2 Months Ago ~04/08/16 Previous Rx's Medication Instructions Recorded Last Taken Type Mometasone Furoate [Nasonex] 17 gm NS DAILY #1 spray.pump 06/13/21 Unknown Rx Nystatin [Nystop Powder] 1 applicatio TP TID #2 bottle 07/10/21 Unknown Rx Allergies Allergy/AdvReac Type Severity Reaction Status Date / Time No Known Allergies Allergy Verified 07/07/21 07:09 ED Review of Systems ROS: Stated complaint: FOOT INFECTION Other details as noted in HPI Comment: All other systems reviewed and negative Constitutional: denies: fever Eyes: denies: eye pain ENT: denies: throat pain Respiratory: denies: cough Cardiovascular: denies: chest pain Gastrointestinal: denies: abdominal pain Genitourinary: denies: dysuria Musculoskeletal: denies: back pain Skin: denies: rash Neurological: denies: headache Hematological/Lymphatic: denies: easy bruising ED Past Medical Hx - Past Medical History Hx Hypertension: Yes Hx Congestive Heart Failure: No Hx Diabetes: No Hx Seizures: Yes Hx Psychiatric Treatment: Yes (ADHD, bipolar possibly schizophrenic) Hx Asthma: No Hx COPD: No Hx HIV: No Additional medical history: Homelessness - Family History Family history: other (Psychiatric disease) - Social History Substance Use Type: Alcohol, Methamphetamines - Medications Home Medications: Home Medications Medication Instructions Recorded Confirmed Last Taken Type OLANzapine [Zyprexa] 10 mg PO DAILY 11/26/15 03/12/17 2 Months Ago History ~04/08/[address] [Depakote Dr] 500 mg PO BID 03/18/16 03/12/17 2 Months Ago History ~04/08/16 Mometasone Furoate [Nasonex] 17 gm NS DAILY #1 spray.pump 06/13/21 Unknown Rx Nystatin [Nystop Powder] 1 applicatio TP TID #2 bottle 07/10/21 Unknown Rx ED Physical Exam - General Limitations: No Limitations, Other (Pulse ox noted and normal) General appearance: alert, in no apparent distress, other (Disheveled) - Head Head exam: Present: atraumatic, normocephalic - Eye Eye exam: Present: normal appearance, EOMI - ENT ENT exam: Present: normal external ear exam - Neck Neck exam: Present: normal inspection. Absent: meningismus - Respiratory Respiratory exam: Present: normal lung sounds bilaterally. Absent: respiratory distress - Cardiovascular Cardiovascular Exam: Present: regular rate, normal rhythm - GI/Abdominal GI/Abdominal exam: Present: soft - Extremities Exam Extremities exam: Present: normal capillary refill, other (Patient has blister and callus formation to the plantar aspect of both feet.) - Back Exam Back exam: Absent: CVA tenderness (R), CVA tenderness (L) - Neurological Exam Neurological exam: Present: alert, oriented X3, CN II-XII intact, normal gait - Psychiatric Psychiatric exam: Present: normal affect, normal mood - Skin Skin exam: Present: warm, dry ED Course Vital Signs 07/16/21 08:39 Temperature 97.8 F Pulse Rate 99 H Respiratory 16 Rate Blood Pressure 130/77 O2 Sat by Pulse 97 Oximetry - Reevaluation(s) Reevaluation #1: 07/16/21 09:10 Patient's feet were cleaned. He was placed in clean socks. He was given food. He was discharged. ED Medical Decision Making - Medical Decision Making Patient presents because his feet reportedly are green. He has evidence of blister and callus formation. He does not have evidence of a cellulitis. There is no evidence of lymphangitis. There is no evidence of necrotic wound or suspicion for osteomyelitis. He has been given hygiene products and discharged. Critical Care Time: No Critical care attestation.: If time is entered above; I have spent that time in minutes in the direct care of this critically ill patient, excluding procedure time. ED Disposition Clinical Impression: Trench foot of left lower extremity Qualifiers: Encounter type: initial encounter Qualified Code(s): T69.022A - Immersion foot, left foot, initial encounter Trench foot of right lower extremity Qualifiers: Encounter type: initial encounter Qualified Code(s): T69.021A - Immersion foot, right foot, initial encounter Disposition: 01 HOME / SELF CARE / HOMELESS Is pt being admited?: No Condition: Stable Additional Instructions: USE YOUR MEDICATION. KEEP FEET CLEAN AND DRY. RETURN FOR PROBLEMS. Referrals: DAVON SCHNEIDER MD [Staff Physician] - 3-5 Days
[2021-07-16 09:51] VITALS: BP 120/81
== END 2021-07-16 09:53 | disposition home or self-care (01) ==
LOC: ED 08:36
DX: T69.022A Immersion foot, left foot, initial encounter (principal); T69.021A Immersion foot, right foot, initial encounter; I10 Essential (primary) hypertension; F31.9 Bipolar disorder, unspecified; F15.10 Other stimulant abuse, uncomplicated; Z72.89 Other problems related to lifestyle; Z79.899 Other long term (current) drug therapy
CPT/HCPCS: 99282

== ENCOUNTER 2021-07-17 02:55 | Emergency (ER) | payer SELFPAY ==
[2021-07-17 03:30] VITALS: BP 147/92
--- NOTE | 2021-07-17 04:05 | Emergency Department Report ---
Chief Complaint: Extremity Injury, Lower Stated Complaint: Medical clearance Time Seen by Provider: 07/17/21 03:59 - HPI History of Present Illness: The patient was evaluated in the emergency department for symptoms described in the history of present illness. He/she was evaluated in the context of the global COVID-19 pandemic, which necessitated consideration that the patient might be at risk for infection with the virus that causes COVID-19. Institutional protocols and algorithms that pertain to the evaluation of patients at risk for COVID-19 are in a state of rapid change based on information released by regulatory bodies including the CDC and federal and [facility] organizations. These policies and algorithms were followed during the patient's care in the emergency department. Please note that these policies, procedures and recommendations changed on a rapid basis. The patient is a 30-year-old gentleman who was presented multiple times to this department with a complaint of chronic foot wounds, and homelessness. He was seen by my colleague yesterday morning for similar complaint. The patient to me denies headache, neck pain, chest pain, abdominal pain, shortness of breath, fevers or chills, homicidality and suicidality. His foot issues were addressed yesterday, and on his examination, he is afebrile, with reassuring vital signs, in no respiratory distress, moving 4 extremities, walking with a steady gait, and on his bilateral foot exam, there is no redness, pus, streaking or tenderness, he has appropriate pulses, no tenderness, and what appears to be chronic blisters. The patient does not appear to have an emergent medical or psychiatric condition present at this time. Patient was recently discharged with appropriate prescriptions. This patient may be screened out at this time, and emergency medical condition is not present, and he may follow-up with an outpatient primary care doctor, or health department. - Exam Vital Signs: Vital Signs 07/17/21 03:30 Temperature 98.6 F Pulse Rate 98 H Respiratory 18 Rate Blood Pressure 147/92 [Left] O2 Sat by Pulse 99 Oximetry Physical Exam: Normocephalic atraumatic head EOMI. GCS 15. No facial droop. Tongue midline. Extraocular movements intact bilaterally. Facial sensation intact to light touch in V1, V2, V3 distribution bilaterally. 5 and a 5 strength in 4 extremities. Sensation intact to light touch in 4 extremities. No respiratory distress There is no stridor. 2+ pulses noted in the bilateral lower extremities. There is no redness, pus or streaking. Chronic appearing blisters noted. No superinfection is noted. MSE screening note: Focused history and physical exam performed. Due to findings the following was ordered: ED Medical Decision Making - Lab Data Vital Signs 07/17/21 03:30 Temperature 98.6 F Pulse Rate 98 H Respiratory 18 Rate Blood Pressure 147/92 [Left] O2 Sat by Pulse 99 Oximetry ED Disposition for MSE Clinical Impression: Encounter for medical screening examination, Blister Disposition: HOME / SELF CARE / HOMELESS Is pt being admited?: No Does the pt Need Aspirin: No Condition: Stable Additional Instructions: Please continue the medicines that were recently prescribed to the patient. Please wash bilateral feet with gentle soap and water once every 12-24 hours. Otherwise, please keep feet dry, and covered. Please follow-up with outpatient resources/referrals that have been provided to the patient. Please return to the emergency room right away with new pain, worsened pain, migration of pain, projectile vomiting, change in mental status, confusion, inability tolerate liquid feeds, new, worsened or different symptoms not present on the initial emergency room evaluation Referrals: [facility] [Outside] - 3-5 Days [facility] [Outside] - 3-5 Days
== END 2021-07-17 07:40 | disposition home or self-care (01) ==
LOC: ED 02:55
DX: S80.822A Blister (nonthermal), left lower leg, initial encounter (principal); S80.821A Blister (nonthermal), right lower leg, initial encounter; X58.XXXA Exposure to other specified factors, initial encounter; Y93.89 Activity, other specified; Y92.89 Other specified places as the place of occurrence of the external cause; Y99.8 Other external cause status
CPT/HCPCS: 99282